=== PATIENT | male | born 1985 | race Hispanic/Latino ===

== ENCOUNTER → 2025-02-06 | Day surgery (SDC) | payer OTHER ==
[~2025-02-06] MED LIST: FENTANYL CITRATE/PF 100MCG/2 ML INJ ONE; GLUCAGON FOR INJ 1 MG VIAL ONE; LIDOCAINE HCL 2% LOCAL INJ 5 ML SDV VIAL INJ ONE; PROPOFOL IV EMULSION 10 MG/ML 20 ML VIAL ONE; PROPOFOL IV EMULSION 50 ML IV ONE
[2025-02-06] MEDS: LACTATED RINGER'S 1,000 ML ONE (11:21)
[2025-02-06 13:32] VITALS: TEMP 97.3
[2025-02-06 14:00] VITALS: BP 102/68; PULSE 64; RESP 16; O2SAT 96
== END | disposition home or self-care (01) ==
LOC: OR 10:42 → EDSEX 14:00
PROVIDERS: ATTEND Internal Medicine Gastroenterology
DX: K29.50 Unspecified chronic gastritis without bleeding (principal); K63.5 Polyp of colon; K62.1 Rectal polyp; K25.9 Gastric ulcer, unspecified as acute or chronic, without hemorrhage or perforation; K20.90 Esophagitis, unspecified without bleeding; K31.89 Other diseases of stomach and duodenum; Z93.3 Colostomy status; K59.00 Constipation, unspecified; K64.8 Other hemorrhoids; Z87.19 Personal history of other diseases of the digestive system; E66.9 Obesity, unspecified; K21.9 Gastro-esophageal reflux disease without esophagitis; Z68.36 Body mass index [BMI] 36.0-36.9, adult; Z90.49 Acquired absence of other specified parts of digestive tract
CPT/HCPCS: 43239; 45385; J1610; J2003; J2470; J2704 ×2; J3010; J7121